=== PATIENT | female | born 1995 | race Caucasian/White ===

== ENCOUNTER 2022-04-09 10:17 | Emergency (ER) | payer SELFPAY ==
[~2022-04-09] VITALS: Ht 165.1 cm; Wt 54.4 kg
[2022-04-09 10:32] VITALS: BP 123/71
--- NOTE | 2022-04-09 10:32 | NUR ---
BIBS C/O SORETHROAT X 5 DAYS
[2022-04-09] MEDS ORDERED: IBUPROFEN 400 MG TABLET PO ONE (11:00)
[2022-04-09] MEDS ORDERED: ACETAMINOPHEN ES 500 MG TABLET PO ONE (11:00)
--- NOTE | 2022-04-09 11:04 | NUR ---
RAPID STREP TEST COLLECTED AND SENT
[2022-04-09] MEDS ORDERED: CETI1TAB9 PO (12:08)
[2022-04-09] MEDS ORDERED: AMOX-430 PO (12:08)
--- NOTE | 2022-04-09 12:17 | NUR ---
Patient discharged to home in stable condition. Written and verbal after care instructions given. Patient verbalizes understanding of instruction.
== END 2022-04-09 12:19 | disposition home or self-care (01) ==
LOC: EDSEX 10:26 → ER 10:26
DX: J32.9 Chronic sinusitis, unspecified (principal)
CPT/HCPCS: 86403-TC; 87070-TC